=== PATIENT | female | born 1960 | race Caucasian/White ===

== ENCOUNTER 2016-09-08 16:45 | Emergency (ER) | payer OTHER ==
[~2016-09-08] VITALS: Wt 69.0 kg
[2016-09-08] MEDS ORDERED: SOD CHLORIDE 0.9% 1,000 ML IV ONE ×2 (19:00)
[2016-09-08 19:16] LABS: ADD UMIC YES; URINE BILIRUBIN (Dip) NEGATIVE (NEGATIVE); URINE BLOOD (Dip) 3+ (NEGATIVE); URINE COLOR LT. YELLOW (YELLOW); URINE GLUCOSE (Dip) NEGATIVE (NEGATIVE); URINE KETONES (Dip) NEGATIVE (NEGATIVE); URINE LEUKOCYTE ESTERASE (Dip) 1+ (NEGATIVE); URINE NITRITE (Dip) NEGATIVE (NEGATIVE); URINE TOTAL PROTEIN (Dip) 1+ (NEGATIVE); URINE UROBILINOGEN (Dip) 0.2 E.U./dL (0.1-1.0)
[2016-09-08] MEDS ORDERED: LEVO137T3 PO (19:22)
[2016-09-08 19:35] LABS: ADD SCAN DIFF NO
[2016-09-08 19:35] LABS: SQUAMOUS EPITHELIAL CELL,UR FEW
[2016-09-08 19:37] LABS: BASOPHILS % 0.2 % (0.0-2.0); EOSINOPHILS # 0.1 10^3/ul (0.0-0.5); EOSINOPHILS % 1.6 % (0.0-7.0); HEMATOCRIT 36.4 % (37.0-47.0); HEMOGLOBIN 12.4 g/dl (12.0-16.0); LYMPHOCYTES # 2.1 10^3/ul (0.8-2.9); LYMPHOCYTES % 23.7 % (15.0-51.0); MEAN CORPUSCULAR HEMOGLOBIN 29.2 pg (29.0-33.0); MEAN CORPUSCULAR HGB CONC 34.1 g/dl (32.0-37.0); MEAN CORPUSCULAR VOLUME 85.8 fl (82.0-101.0); MEAN PLATELET VOLUME 9.8 fl (7.4-10.4); MONOCYTE # 0.5 10^3/ul (0.3-0.9); MONOCYTES % 5.7 % (0.0-11.0); NEUTROPHILS % 68.6 % (39.0-77.0); PLATELET COUNT 252 10^3/UL (140-415); RED BLOOD COUNT 4.24 10^6/ul (4.20-5.40); RED CELL DISTRIBUTION WIDTH 12.7 % (11.5-14.5); WHITE BLOOD COUNT 8.7 10^3/ul (4.8-10.8)
[2016-09-08 19:58] LABS: CREATININE 0.8 mg/dl (0.44-1.00)
[2016-09-08 19:59] LABS: CALCIUM 9.6 mg/dl (8.4-10.2)
[2016-09-08] MEDS ORDERED: BACTDS PO (20:26)
[2016-09-08] MEDS ORDERED: CEPH500C PO (20:26)
[2016-09-08] MEDS ORDERED: NAPR-688 PO (20:27)
[2016-09-08] MEDS ORDERED: CEFTRIAXONE 1 GM/50 ML (PMX) 50 ML IVPB ONE (20:30)
[2016-09-08 21:14] VITALS: BP 117/67; PULSE 78; RESP 18; TEMP 97.9
--- NOTE | 2016-09-08 21:38 | ERD ---
ER Documentation Chief Complaint Date/Time DATE: 09/08/16 TIME: 21:21 Chief Complaint URINARY RETENTION AND FEELS BURNING SENSATIONS. OVER 12 HRS NO URINE HPI This 56-year-old female presents emergency room for dysuria and inability urinate for the last half day. She has no back pain. She experienced no fevers. She has a secondary complaint of lower lip swelling. Approximately 10 years ago she had collagen injections into her lower lip for aesthetic reasons. Over the last 4 days the lower lip has begun swelling. She has had no fevers or chills. The swelling is uncomfortable but not exquisitely painful. ROS All systems reviewed and are negative except as per history of present illness. Medications Home Meds Active Scripts Naproxen* (Naproxen*) 500 Mg Tablet, 500 MG PO BID Y for PAIN, #20 TAB Prov:KATARZYNASANASAMIR AGUILERA 09/08/16 Cephalexin* (Cephalexin*) 500 Mg Capsule, 500 MG PO Q8, #10 CAP Prov:SANA COLÓN DO 09/08/16 Sulfamethoxazole-Trimethoprim* (Bactrim* DS) 800-160 Mg Tab, 1 TAB PO BID, #20 TAB Prov:KATARZYNASANASAMIR AGUILERA 09/08/16 Reported Medications Levothyroxine Sodium* (Levothyroxine Sodium*) 137 Mcg Tablet, 137 MCG PO BEFORE BREAKFAST, #30 TAB 09/08/16 Allergies Allergies: Coded Allergies: No Known Allergy (Unverified , 09/08/16) PMhx/Soc Medical and Surgical Hx: pt denies Surgical Hx History of Surgery: No Anesthesia Reaction: No Hx Neurological Disorder: No Hx Respiratory Disorders: No Hx Cardiac Disorders: No Hx Psychiatric Problems: No Hx Miscellaneous Medical Probl: Yes (THYROID) Hx Alcohol Use: No Hx Substance Use: No Hx Tobacco Use: No Smoking Status: Never smoker Physical Exam Vitals Vital Signs Date Time Temp Pulse Resp B/P Pulse Ox O2 Delivery O2 Flow Rate FiO2 09/08/16 18:53 98.5 88 18 112/65 98 Room Air 09/08/16 16:55 98.5 105 20 116/72 98 Physical Exam Const: [] No distress Head: Atraumatic Eyes: Normal Conjunctiva ENT: Normal External Ears, Nose, lower lip with raised areas of swelling that are nonfluctuant with no calor. Resp: Clear to auscultation bilaterally Cardio: Regular rate and rhythm, no murmurs Abd: Soft, non tender, non distended. Normal bowel sounds Skin: No petechiae or rashes Back: No midline or flank tenderness Ext: No cyanosis, or edema Neur: Awake and alert and oriented 3, no focal deficits Psych: Normal Mood and Affect Result Diagram: 09/08/16191409/08/161914 Results 24 hrs Laboratory Tests Test 09/08/16 18:32 09/08/16 19:15 Urine Bilirubin NEGATIVE Urine Clarity SLIGHTLY CLOUDY Urine Color LT. YELLOW Urine Glucose NEGATIVE% Urine Hemoglobin 3+ Urine Ketones NEGATIVE Urine Leukocyte Esterase 1+ Urine Microscopic RBC 10-25/HPF Urine Microscopic WBC 10-25/HPF Urine Nitrite NEGATIVE Urine Specific [employer] 1.020 Urine Squamous Epithelial Cells FEW Urine Total Protein 1+ Urine Urobilinogen 0.2 E.U./dL Urine pH 7.5 Anion Gap 18 Basophils # 0.010^3/ul Basophils % 0.2% Blood Urea Nitrogen 20mg/dl Calcium Level 9.6mg/dl Carbon Dioxide Level 27mmol/L Chloride Level 99mmol/L Creatinine 0.80mg/dl Eosinophils # 0.110^3/ul Eosinophils % 1.6% Glucose Level 104mg/dl Hematocrit 36.4% Hemoglobin 12.4g/dl Lymphocytes # 2.110^3/ul Lymphocytes % 23.7% Mean Corpuscular Hemoglobin 29.2pg Mean Corpuscular Hemoglobin Concent 34.1g/dl Mean Corpuscular Volume 85.8fl Mean Platelet Volume 9.8fl Monocytes # 0.510^3/ul Monocytes % 5.7% Neutrophils # 6.010^3/ul Neutrophils % 68.6% Nucleated Red Blood Cells # 0.010^3/ul Nucleated Red Blood Cells % 0.0/100WBC Platelet Count 25600^3/UL Potassium Level 4.0mmol/L Red Blood Count 4.2410^6/ul Red Cell Distribution Width 12.7% Sodium Level 140mmol/L White Blood Count 8.710^3/ul Current Medications Medications (Trade) Dose Ordered Sig/Mitch Route PRN Reason Start Time Stop Time Status Last Admin Dose Admin Sodium Chloride 1,000 ml @ 1,000 mls/hr Q1H ONCE IV 09/08/16 19:00 3/8/17 19:59 DC 09/08/16 19:15 Sodium Chloride 1,000 ml @ 1,000 mls/hr Q1H ONCE IV 09/08/16 19:00 09/08/16 19:59 DC 09/08/16 19:37 Ceftriaxone Sodium (Rocephin) 50 ml @ 100 mls/hr ONCE ONCE IVPB 09/08/16 20:30 09/08/16 20:59 DC 09/08/16 20:53 Procedures/MDM Patient with urinary tract infection as well as possible lower lip infection. Patient's nurse states that he had had lip injections that became infected approximately 7 years after the injections. Discharge with both Bactrim and Keflex will treat the UTI as well as any associated lip cellulitis. Also giving naproxen for pain. Discharging with instructions to call her primary care doctor to obtain a plastics referral for further evaluation of her lower lip. Departure Diagnosis: Primary Impression: Cellulitis, lip Additional Impression: UTI (urinary tract infection) Condition: Stable Patient Instructions: Understanding Urinary Tract Infections (UTIs), Cellulitis , Facial Additional Instructions: Call your primary care doctor TOMORROW for an appointment during the next 1-2 days. Obtain a referral for PLASTICS to evaluate the lip. See the doctor sooner or return here if your condition worsens before your appointment time. SANA COLÓN DO Sep 08, 2016 21:31
== END 2016-09-08 21:45 | disposition home or self-care (01) ==
LOC: E/R 16:45
DX: K13.0 Diseases of lips (principal); N39.0 Urinary tract infection, site not specified; R40.2142 Coma scale, eyes open, spontaneous, at arrival to emergency department; R40.2252 Coma scale, best verbal response, oriented, at arrival to emergency department; R40.2362 Coma scale, best motor response, obeys commands, at arrival to emergency department
CPT/HCPCS: 36415; 80048; 81001; 85025; 96374; J0696; J7030; Z7502; 81003